=== PATIENT | female | born 1945 | race Caucasian/White ===

== ENCOUNTER 2018-10-13 09:15 | Inpatient (IN) | payer MEDICARE ==
[2018-10-21] MEDS ORDERED: VANCOMYCIN HCL 1,000 MG in DEXTROSE 5 % IN WATER 250 ML IVPB ONE ×2 (06:00)
[2018-10-21] MEDS ORDERED: METOCLOPRAMIDE 10 MG TABLET PO ONE (06:00)
[2018-10-21] MEDS ORDERED: CEFAZOLIN 2 Gram 2 GM/50 ML BAG IVPB ONE (06:00)
[2018-10-21] MEDS ORDERED: CELECOXIB 100 MG CAPSULE PO ONE (06:00)
[2018-10-21] MEDS ORDERED: FAMOTIDINE 20MG TABLET PO ONE (06:00)
[2018-10-21] MEDS ORDERED: MECLIZINE 25 MG TABLET PO ONE (06:00)
[2018-10-21 07:23] LABS: ABO GROUP O; ANTIBODY SCREEN NEGATIVE (NEGATIVE); RH TYPE POSITIVE
[2018-10-21] MEDS ORDERED: KETOROLAC 30 MG/ML VIAL IVP PRN ×2 (09:55)
[2018-10-21] MEDS ORDERED: BISACODYL 10 MG SUPP RC PRN (09:55)
[2018-10-21] MEDS ORDERED: HYDROMORPHONE HCL 2 MG/ML VIAL IM PRN (09:55)
[2018-10-21] MEDS ORDERED: ONDANSETRON HCL IV 4 MG/2 ML VIAL IVP PRN (09:55)
[2018-10-21] MEDS ORDERED: NALOXONE 0.4 MG/1 ML VIAL IVP PRN (09:55)
[2018-10-21] MEDS ORDERED: ACETAMINOPHEN W/ CODEINE 300MG/60MG TABLET PO PRN ×2 (09:55)
[2018-10-21] MEDS ORDERED: ZOLPIDEM TARTRATE 5 MG TABLET PO PRN (09:55)
[2018-10-21] MEDS ORDERED: MAGNESIUM HYDROXIDE 30 ML UDC PO PRN (09:55)
[2018-10-21] MEDS ORDERED: DIPHENHYDRAMINE HCL 25 MG CAPSULE PO PRN (09:55)
[2018-10-21] MEDS ORDERED: ACETAMINOPHEN 325 MG TAB PO PRN (09:55)
[2018-10-21] MEDS ORDERED: AL HYDROX/MAG HYDROX 30ML UD PO PRN (09:55)
[2018-10-21] MEDS ORDERED: HYDROCODONE/APAP 10/325 TABLET PO PRN (09:55)
[2018-10-21] MEDS: HYDROCODONE/APAP 10/325 TABLET PO PRN ×3 (11:25→22:03)
[2018-10-21] MEDS ORDERED: PNEUM 23-VAL ADULT IM ONE (11:46)
--- NOTE | 2018-10-21 13:46 | Rehab Evaluation ---
Patient Information - Patient Information Diagnosis: L hip OA Ordered Treatment: PT Evaluate and Treat Status: Initial Evaluation Surgery: Yes (L hipTHR) Date of Surgery: 10/21/18 Past Medical/Surgical Hx: PAST MEDICAL/SURGICAL HISTORY Past Surgical History RTHA 1 yr ago bilat shoulder replacemnents exploratory sx tonsils PMH - Respiratory Hx Respiratory Disorders Yes Hx Bronchitis Yes Hx Pneumonia Yes PMH - Cardiovascular Hx Cardiovascular Disorders Yes Hx Hypertension Yes Exercise Tolerance Good PMH - Neuro Hx Neurological Disorders No PMH - GI Hx Gastrointestinal Disorders Yes Hx Gastroesophageal Reflux Yes: spicy food PMH - Hx Genitourinary Disorders No PMH - Endocrine Hx Endocrine Disorders No Hx Diabetes No: Pt denies blood sugar on labs was 206 PMH - Musculoskeletal Hx Musculoskeletal Disorders Yes Hx Arthritis Yes Hx Fibromyalgia Yes: possibly PMH - Psych Hx Psychiatric Problems No PMH - Hematology/Oncology Hx Hematology/Oncology Yes Disorders Hx Cancer Yes: skin CA face Premorbid Status: Detail (The patient was independent with all mobility prior to surgery.) Social History: Detail (The patient lives with spouse in a mobile home with 4 steps at the enterance with 2 railings. The patient's bathroom is equipped with a tub/shower combination and a standard toilet with a riser seat. The patient has a front wheeled walker, 4 wheeled walker, standard cane, reachers and sock aides. The patient is planning on going to subacute Rehab following her inpatient stay.) Precautions: [place], Fall, Other (THR precautions.) - Time With Patient Total Time Spent With Patient (Min): 30 Treatment Procedures: Detail (Initial Evaluation) Subjective Information - Subjective Information Per Patient (The patient had minimal complaints of level 2 L hip pain using 0- 10 pain scale. The patient complained of light headedness with both sitting and standing.) Objective Data - Mental Status Patient Orientation: Oriented x3 - Visual Perception Appears within normal limits for therapeutic activities - ROM Not within normal limits (The patient's L hip pain is limited within THR precautions. All other LE AROM is WNL.) - Strength/Tone Not within normal limits (The patient's L LE strength was not tested secondary to s/p surgery however is WFL. The patient's R LE is WNL.) - Bed Mobility Independent (The patient required minimal PA to slide/lift L LE for supine to sit and was independent with sit to supine and scooting up in bed.) - Transfers Independent (The patient was independent with sit to stand. The patient required CG/supervision with commode transfer due to light headedness.) - Balance Balance Sitting: Good Balance Standing: Good - Sensation Intact - Gait Detail (The patient ambulated 2 to 3 steps with front wheeled walker due to lightheadness. The patient ambulated per nursing staff later with supervision for safety (14 feet x 1)) Therapy Assessment - Therapy Assessment Detail (The patient's mobility was limited secondary to lightheadness. Feel the patient will progress well with mobility once symptoms subside.) Patient Education - Patient Education Teaching Topic: Precautions (The patient was able to indentify 3 THR precautions.) Response: Verbalize Understanding Teaching Method: Discussion Teaching Recipient: Patient Barriers To Learning: None Problem List - Problem List Physical Therapy Problem List: Detail (1) Decreased L LE strength 2) Assistance with bed mobility 3) Limited ambulation) Goals - Goals Physical Therapy Goals: 1) The patient will be independent with all bed mobility. 2) The patient will be independent with THR HEP. 3) The patient will ambulate with appropriate assistive device household distances WBAT on the L LE. 4) The patient will ambulate on stairs with supervision for safety using proper technique. Prognosis - Prognosis Good Plan - Plan Physical Therapy Plan: PT 1-2 times a day for gait training , bed mobility , transfer training and instruction in HEP until all inpatient PT goals have been met.
[2018-10-21] MEDS ORDERED: BUPIVACAINE 0.5% W/EPI MPF 30 ML VIAL IVP ONE (16:02)
[2018-10-21] MEDS ORDERED: TRANEXAMIC ACID 1,000 MG/10 ML ML IV ONE (16:02)
--- NOTE | 2018-10-21 16:20 | Operative Note ---
DATE OF SURGERY: 10/21/2018 PREOPERATIVE DIAGNOSIS: End-stage arthrosis of the left hip. POSTOPERATIVE DIAGNOSIS: End-stage arthrosis of the left hip. OPERATION: Cementless left total hip arthroplasty using [employer]ria and Nephew components with a size 50 no-hole Reflection cup, 32 mm diameter 35-degree offset liner, a size 12 high-offset [place] stem with a +0 32 mm diameter Oxinium head. Surgeon: Olman Singleton MD Anesthesia: Spinal. PREPARATION: Chloraprep. INDIVIDUAL CONSIDERATIONS: None. PROCEDURE: The patient was taken to the operating room, placed supine on the operating room table. She had a successful induction of spinal anesthetic. She was then placed on her side left side up. Her left leg and hip were prepped and draped in the usual fashion. The patient had a direct posterior approach to the hip. Sharp dissection carried down through skin and subcutaneous tissues. Small veins were coagulated with a Bovie. The tensor gluteal fascia was opened along the entire length of the incision, and deep retractors were placed. Short external rotators were identified, piriformis fossa removed exposing the posterior capsule. Posterior capsulectomy was performed. Hip was dislocated posteriorly. The patient had bloody fluids on the hip, an erosive head. A femoral neck cut was then made about a fingerbreadth above the lesser trochanter and a rim capsulectomy was performed. Starting with a 45 mm reamer to medialize to the medial wall, I reamed to the introitus, which was 49 for a 50 cup. I slightly under-reamed to 48. After irrigation, I impacted a size 50 no-hole Reflection cup in 20 degrees of forward flexion and about 40 degrees of abduction using the extraarticular alignment guide and bony landmarks. There was solid cementless fixation. This was then irrigated out. A center cap screw was placed, and a 32 mm diameter 35-degree offset liner was placed with the offset posteriorly and inferiorly. This gave an excellent stable acetabular construct, and this was packed off. The proximal femur was delivered into the wound, and box cutting osteotome was used to remove the proximal metaphyseal bone. Mid stem reaming was done to a size 13. I started feeling cortex between 11 and 12. I started broaching with an 11 to a 10 and then up to a 13. Anteversion was dialed in to follow the natural anteversion angle, which is about 20-25 degrees. After calcar reaming with a high-offset +0 trial, I had excellent stability. I removed the trial, irrigated it out, and packed in a high offset size 13 [place] stem with solid calcar contact, solid cementless fixation. Again with a +0 trial, full stability. Irrigated out, dried the [place] taper, impacted a +0 32 mm diameter Oxinium head. I reduced the hip. Full stability, full anterior stability, and full extension and external rotation. Normal shuck. I flexed her maximally and internally rotated 90 degrees until I had stability. After irrigation, the sciatic nerve was inspected and found to be completely intact. Hemostasis was obtained with a Bovie. The patient did receive 1 g of tranexamic acid preoperatively. I mixed 1 g of tranexamic acid with 30 mL of saline and placed this deep in the fascia. The fascia was then closed with a running #2 quill, subcu was closed in layers with running 0 quill, skin was closed with juvencio. Prior to closure, I did infiltrate the skin and subcu with 30 mL of Marcaine with epinephrine and sterile bulky compressive NOREEN-type dressing was applied. The patient tolerated the procedure well. Needle and sponge counts were correct. Estimated blood loss was minimal. She was taken back to recovery in good condition. There were no complications. BRANDON
[2018-10-21] MEDS: FERROUS SULFATE 325 MG TAB PO SCH (16:26)
[2018-10-21] MEDS: DOCUSATE SODIUM 100 MG CAPSULE PO SCH ×2 (16:26→21:54)
[2018-10-21] MEDS: CEFAZOLIN 2 Gram 2 GM/50 ML BAG IVPB SCH ×2 (17:18→23:06)
[2018-10-21] MEDS: POTASSIUM CHLORIDE/D5-0.9%NACL 20 MEQ/1,000 ML BAG IV SCH ×2 (21:54→21:55)
[2018-10-22] MEDS: POTASSIUM CHLORIDE/D5-0.9%NACL 20 MEQ/1,000 ML BAG IV SCH ×2 (04:01→14:27)
[2018-10-22 06:54] LABS: HEMOGLOBIN 11.2 gm/dl (11.6-16.0)
[2018-10-22 07:07] LABS: BLOOD UREA NITROGEN 15 mg/dL (8-23); CREATININE 0.9 mg/dL (0.5-0.9); EST GLOMERULAR FILTRATION RATE > 60 mL/min; GLUCOSE,RANDOM 151 mg/dL (74-109)
--- NOTE | 2018-10-22 07:43 | RADIOLOGY REPORT ---
EXAM: CHEST, SINGLE VIEW HISTORY: HUSSAIN PLACEMENT. TECHNIQUE: A single frontal view of the chest was obtained. Comparison: None. FINDINGS: Borderline cardiac silhouette enlargement. The thoracic aorta is mildly tortuous. No focal pulmonary consolidation. No pleural effusion or pneumothorax visible. No definite acute osseous findings. A right glenohumeral prosthesis is noted. IMPRESSION: 1. BORDERLINE CARDIAC SILHOUETTE ENLARGEMENT. 2. NO DEFINITE ACUTE LUNG FINDINGS. JOB NUMBER: [id number] MTDD
[2018-10-22] MEDS: HYDROCODONE/APAP 10/325 TABLET PO PRN ×2 (09:02→19:19)
[2018-10-22] MEDS: CEFAZOLIN 2 Gram 2 GM/50 ML BAG IVPB SCH (09:11)
[2018-10-22] MEDS: FERROUS SULFATE 325 MG TAB PO SCH (09:12)
[2018-10-22] MEDS: DOCUSATE SODIUM 100 MG CAPSULE PO SCH ×2 (09:12→22:57)
[2018-10-22] MEDS: RIVAROXABAN 10 MG TABLET PO SCH (09:12)
[2018-10-22] MEDS: LISINOPRIL 30 MG PO SCH (09:15)
--- NOTE | 2018-10-22 10:37 | Rehab Evaluation ---
Patient Information - Patient Information Diagnosis: DJD left hip Ordered Treatment: OT Evaluate and Treat Status: Initial Evaluation Surgery: Yes (left MAGED) Date of Surgery: 10/21/18 Past Medical/Surgical Hx: PAST MEDICAL/SURGICAL HISTORY Past Surgical History RTHA 1 yr ago bilat shoulder replacemnents exploratory sx tonsils PMH - Respiratory Hx Respiratory Disorders Yes Hx Bronchitis Yes Hx Pneumonia Yes PMH - Cardiovascular Hx Cardiovascular Disorders Yes Hx Hypertension Yes Exercise Tolerance Good PMH - Neuro Hx Neurological Disorders No PMH - GI Hx Gastrointestinal Disorders Yes Hx Gastroesophageal Reflux Yes: spicy food PMH - Hx Genitourinary Disorders No PMH - Endocrine Hx Endocrine Disorders No Hx Diabetes No: Pt denies blood sugar on labs was 206 PMH - Musculoskeletal Hx Musculoskeletal Disorders Yes Hx Arthritis Yes Hx Fibromyalgia Yes: possibly PMH - Psych Hx Psychiatric Problems No PMH - Hematology/Oncology Hx Hematology/Oncology Yes Disorders Hx Cancer Yes: skin CA face Premorbid Status: Detail (The patient was independent with all mobility prior to surgery. She and family members shared home mgmt, meal prep and laundry.) Social History: Detail (The patient lives with spouse and son in a double wide mobile home with 3 steps at the entrance with 2 railings. The patient's bathroom is equipped with a tub/shower combination with a tub seat and a standard toilet with a riser seat. There are no grab bars in the bathroom. The patient has a front wheeled walker, 4 wheeled walker, standard cane and 3 reachers. The patient is planning on going to subacute Rehab following her inpatient stay.) Precautions: [place], Fall, Other (THR precautions.) - Time With Patient Total Time Spent With Patient (Min): 40 Treatment Procedures: Detail (OT eval low complexity) Subjective Information - Subjective Information Per Patient Objective Data - Pain Pain Present: Yes (04/03) - Mental Status Patient Orientation: Oriented x3 - Visual Perception Appears within normal limits for therapeutic activities (Pt wears glasses.) - ROM Within normal limits (Alaln UE AROM WNL) - Strength/Tone Within normal limits (Allan UE strength WNL) - Coordination Appears within normal limits for therapeutic activities - Bed Mobility Needs Assist (Pt required min assist for moving left LE to EOB and hand held assist to lift upper body up to sitting.) - Transfers Independent (Ind with sit to stand from EOB, chair and commode heights.) - Balance Balance Sitting: Good Balance Standing: Fair - Sensation Intact - Gait Detail (Pt ambulating in room/bathroom with 2 wheeled walker and SBA.) - ADL's/IADL's Detail (Pt educated re: use of mobile equipment servicer, sock aid and long shoe horn for modified LE dressing while adhering to total hip precautions. She was Ind with doffing slipper socks after verbal instruction and Ind with donning sweat pants using mobile equipment servicer. She was able to don socks and tennis shoes using sock aid and long shoe horn after instruction. Pt required SBA for toileting as she was very fatigued and slightly dizzy. Reviewed kitchen and shower safety and modifications, pt verbalized understanding.) Therapy Assessment - Therapy Assessment Detail (Pt Ind with modified LE dressing techniques using adaptive equipment.) Problem List - Problem List Physical Therapy Problem List: Detail (1) Decreased L LE strength 2) Assistance with bed mobility 3) Limited ambulation) Occupational Therapy Problem List: Detail (No current IP OT problems identified although pt was very easily fatigued.) Goals - Goals Physical Therapy Goals: 1) The patient will be independent with all bed mobility. 2) The patient will be independent with THR HEP. 3) The patient will ambulate with appropriate assistive device household distances WBAT on the L LE. 4) The patient will ambulate on stairs with supervision for safety using proper technique. Occupational Therapy Goals: No current IP OT goals identified. She may benefit from short Rehab stay to improve overall endurance as well as safety with IADLs. Prognosis - Prognosis Good Plan - Plan Physical Therapy Plan: PT 1-2 times a day for gait training , bed mobility , transfer training and instruction in HEP until all inpatient PT goals have been met. Occupational Therapy Plan: No further IP OT recommended. Thank you for this referral.
[2018-10-22] MEDS ORDERED: PROPOFOL 10 MG/ML VIAL IV ONE (11:33)
[2018-10-22] MEDS ORDERED: LIDOCAINE 2% MDV (20MG/ML) 20ML VIAL IV ONE (11:33)
[2018-10-22] MEDS ORDERED: EPHEDRINE SULFATE 50 MG/ML ML IV ONE (11:33)
[2018-10-22] MEDS ORDERED: PHENYLEPHRINE HCL 10 MG/ML VIAL IVP ONE (11:33)
[2018-10-22] MEDS ORDERED: MIDAZOLAM HCL 2MG/2ML VIAL IV ONE (11:33)
[2018-10-22] MEDS ORDERED: LABETALOL HCL 5MG/ML, 20ML VIAL IV ONE (12:10)
--- NOTE | 2018-10-22 12:20 | Consult ---
Consult Order Detail - Reason for Consult Consult Date: 10/22/18 Consult Order Detail: Pt was noted to have elevated BP s/p hip surgery. At the time of BP, pt was having elevated pain. Pt was medicated for pain, repeat BP had improvement but not WNL. Dr Singleton made aware and asked for consult to evaluate BP. Limited access to PMH other than pt and but they are both poor historians. No EKG noted in paper or EMR. Pt reports improved pain /10, denies HAINES, CP, or blurred vision. Medication hx is lisinopril 30mg and HCTZ 25mg but only lisinopril has been ordered during this admission. Pt denies h/o DC or heart block, labetolol 10mg IVP ordered once with repeat BP 10 min after administration. Pt does report that pt BP runs 140/150s normally especially during DrElayne benjamin. Pt in no acute distress, was ambulating to restroom during first interaction. Moving all extremities, left leg req some assistance s/p recent hip revision. Will re-assess after pt back to her bed and again if medication is not successful to control BP. Pt has returned to EOB, lungs clear throughout, no noted LE edema. Pt noted to be adding extra salt to her lunch at the time of assessment. Pt encouraged to limit her salt intake and use Mrs Dash instead of salt. Nursing staff to adjust diet to exclude salt additives. - Chief Complaint Chief Complaint: PRIMARY OSTEOARTHRITIS LEFT HIP HPI Consult - History of Present Illness Admitting Diagnosis: djd left hip Past Medical History - SOCIAL HISTORY Smoking Status: Never smoker Alcohol Use: None Drug Use: None - RESPIRATORY Hx Respiratory Disorders: Yes Hx Bronchitis: Yes Hx Pneumonia: Yes - CARDIOVASCULAR Hx Cardio Disorders: Yes Hx Hypertension: Yes - NEURO Hx Neuro Disorders: No - GI Hx GI Disorders: Yes Hx Reflux: Yes (spicy food) - Hx Genitourinary Disorders: No - ENDOCRINE Hx Endocrine Disorders: No Hx Diabetes: No (Pt denies blood sugar on labs was 206) - MUSCULOSKELETAL Hx Musculoskeletal Disorders: Yes Hx Arthritis: Yes Hx Fibromyalgia: Yes (possibly) - PSYCH Hx Psych Problems: No - HEMATOLOGY/ONCOLOGY Hx Hematology/Oncology Disorders: Yes Hx Cancer: Yes (skin CA face) Family Medical History Any Significant Family History?: Yes Hx Cancer: Father Hx Heart Disease: Mother Hx HTN: Brother/Sister H&P Meds - Home Medications and Allergies Allergies Allergy/AdvReac Type Severity Reaction Status Date / Time No Known Drug Allergies Allergy Verified 10/10/18 10:35 Physical Exam - Vital Signs Vital Signs: Vital Signs - Last 24 Hrs Temp Pulse Resp BP BP Pulse Ox 10/22/18 11:55 74 180/68 10/22/18 11:25 16 213/71 10/22/18 08:00 98.4 F 76 18 171/50 93 L 10/22/18 04:00 97.9 F 71 16 152/70 95 10/22/18 00:00 97.9 F 68 16 170/64 98 10/21/18 21:00 16 10/21/18 20:00 97.7 F 78 16 150/66 97 10/21/18 13:10 73 18 156/48 97 Results - Labs Result Diagrams: 10/22/18 06:43 10/22/18 06:43 Labs Last 24 Hours: Laboratory Results - last 24 hr 10/22/18 10/22/18 06:43 06:43 Hgb 11.2 L Hct 35.0 Sodium 140 Potassium 4.5 Chloride 103 Carbon Dioxide 24.0 Anion Gap 13.0 BUN 15 Creatinine 0.9 Estimated GFR > 60 Random Glucose 151 H Calcium 9.2
--- NOTE | 2018-10-22 14:36 | Physical Therapy Tx Note ---
Physical Therapy Tx Note - Treatment Note Tolerated: Fair Total Time Spent With Patient: 25 Physical Therapy Tx Note: Detail (The patient was up in chair when PT arrived. The patient had complaints of L hip pain and lightheadness after ambulating. The patient was independent with sit to and from stand and ambulated 40 feet x 1 WBAT on L LE with front wheeled walker with supervision. The patient exhibited shortness of breath. The patient declined further activity secondary to not feeling well.The patient was returned to room via wheelchair and transfered from wheelchair to bed with use of walker with supervision for safety. The patient was able to achieve sit to supine with minimal PA to lift L LE. The patient was independent with scooting up in bed. Will see patient this pm for review of HEP.) Physical Therapy Problem List: Detail (1) Decreased L LE strength 2) Assistance with bed mobility 3) Limited ambulation) Physical Therapy Goals: 1) The patient will be independent with all bed mobility. 2) The patient will be independent with THR HEP. 3) The patient will ambulate with appropriate assistive device household distances WBAT on the L LE. 4) The patient will ambulate on stairs with supervision for safety using proper technique. Physical Therapy Plan: PT 1-2 times a day for gait training , bed mobility , transfer training and instruction in HEP until all inpatient PT goals have been met.
[2018-10-22] MEDS ORDERED: HYDROCHLOROTHIAZIDE 25 MG TABLET PO ONE (14:59)
--- NOTE | 2018-10-22 16:39 | Physical Therapy Tx Note ---
Physical Therapy Tx Note - Treatment Note Tolerated: Fair Total Time Spent With Patient: 15 Physical Therapy Tx Note: Detail (The patient was in bed when PT arrived. The patient reports she still had a little lightheadedness. The patient's THR exercises were reviewed including: gluteal sets, quad sets, hamstring sets, ankle pumps, assisted hip abduction and hip flexion. The patient had increased pain complaints with hip abduction and flexion.) Physical Therapy Problem List: Detail (1) Decreased L LE strength 2) Assistance with bed mobility 3) Limited ambulation) Physical Therapy Goals: 1) The patient will be independent with all bed mobility (Goal partially met). 2) The patient will be independent with THR HEP (Goal Met). 3) The patient will ambulate with appropriate assistive device household distances WBAT on the L LE. (Goal Met). 4) The patient will ambulate on stairs with supervision for safety using proper technique. (Goal Not Met and to continue in subacute rehab) Physical Therapy Plan: PT 1-2 times a day until discharge to subacute Rehab for gait training, bed mobility, transfer training and THR exercises.
[2018-10-23] MEDS: TRAMADOL HCL 50 MG TABLET PO PRN (05:51)
[2018-10-23 06:44] LABS: HEMATOCRIT 31.1 % (35.0-47.0); HEMOGLOBIN 9.9 gm/dl (11.6-16.0)
[2018-10-23 06:57] LABS: BLOOD UREA NITROGEN 21 mg/dL (8-23); CREATININE 0.8 mg/dL (0.5-0.9); EST GLOMERULAR FILTRATION RATE > 60 mL/min; GLUCOSE,RANDOM 160 mg/dL (74-109)
[2018-10-23] MEDS: DOCUSATE SODIUM 100 MG CAPSULE PO SCH ×2 (09:56→21:54)
[2018-10-23] MEDS: HYDROCHLOROTHIAZIDE 25 MG TABLET PO SCH (09:56)
[2018-10-23] MEDS: FERROUS SULFATE 325 MG TAB PO SCH (09:57)
[2018-10-23] MEDS: RIVAROXABAN 10 MG TABLET PO SCH (09:58)
[2018-10-23] MEDS: LISINOPRIL 30 MG PO SCH (09:58)
--- NOTE | 2018-10-23 13:03 | Physical Therapy Tx Note ---
Physical Therapy Tx Note - Treatment Note Tolerated: Good Total Time Spent With Patient: 25 Physical Therapy Tx Note: Detail (Patient was seated in chair upon DISSOLVER OPERATOR arrival. Patient states 5/10 pain in left hip. Patient transferred sit to and from stand CGA x1. Patient ambulated 102 feet with wheeled walker SBA x1. Patient required several standing rest breaks due to fatigue. Patient performed the following exercises x10 reps each: seated marching, LAQ, isometric hip adduction , seated heel raises, seated toe raises, and glut squeezes. Patient transferred sit to and from stand SBA x1. Patient ambulated 13 feet x2 with wheeled walker SBA x1. Patient transferred sit to and from stand independently. Patient transferred sit to supine min assist x1 to support left LE. Patient scooted up in bed min assist to prevent right foot from sliding. Patient tolerated treatment well. Patient reports feeling tired after treatment. Patient was left reclined in bed with call light within reach.) Physical Therapy Problem List: Detail (1) Decreased L LE strength 2) Assistance with bed mobility 3) Limited ambulation) Physical Therapy Goals: 1) The patient will be independent with all bed mobility (Goal partially met). 2) The patient will be independent with THR HEP (Goal Met). 3) The patient will ambulate with appropriate assistive device household distances WBAT on the L LE. (Goal Met). 4) The patient will ambulate on stairs with supervision for safety using proper technique. (Goal Not Met and to continue in subacute rehab) Prognosis: Good Physical Therapy Plan: PT 1-2 times a day until discharge to subacute Rehab for gait training, bed mobility, transfer training and THR exercises.
--- NOTE | 2018-10-23 14:15 | Physical Therapy Tx Note ---
Physical Therapy Tx Note - Treatment Note Tolerated: Good Total Time Spent With Patient: 10 Physical Therapy Tx Note: Detail (Patient states feeling tired this afternoon. Patient transferred sit to and from stand SBA x1. Patient ambulated 112 feet with wheeled walker SBA x1. Patient declined further exercises due to fatigued. Patient was left seated in chair with call light within reach.) Physical Therapy Problem List: Detail (1) Decreased L LE strength 2) Assistance with bed mobility 3) Limited ambulation) Physical Therapy Goals: 1) The patient will be independent with all bed mobility (Goal partially met). 2) The patient will be independent with THR HEP (Goal Met). 3) The patient will ambulate with appropriate assistive device household distances WBAT on the L LE. (Goal Met). 4) The patient will ambulate on stairs with supervision for safety using proper technique. (Goal Not Met and to continue in subacute rehab) Prognosis: Good Physical Therapy Plan: PT 1-2 times a day until discharge to subacute Rehab for gait training, bed mobility, transfer training and THR exercises.
[2018-10-23] MEDS: HYDROCODONE/APAP 10/325 TABLET PO PRN ×2 (14:41→20:55)
--- NOTE | 2018-10-23 20:30 | Discharge Summary ---
DATE OF ADMISSION: 10/21/2018 DATE OF DISCHARGE: 10/24/2018 DATE OF SURGERY: 10/21/2018 HISTORY: Gema is a delightful 73-year-old female who presents with end-stage arthrosis of her right hip. She was admitted after right total hip arthroplasty. Postoperatively, she did well and her hospital course was unremarkable. Her discharge hemoglobin was 9.9. DISCHARGE INSTRUCTIONS: The plan is to transfer her to rehab. She was given [place] for pain. She will get an additional four days of Xarelto for DVT prophylaxis and then after that she should take a regular Aspirin daily for an additional 30 days. Her sutures should be removed two weeks postoperatively and she should follow-up in my office in four weeks. Her discharge condition was good. FINAL DIAGNOSIS/PRIMARY DIAGNOSIS: END-STAGE ARTHROSIS OF THE RIGHT HIP. SECONDARY DIAGNOSIS: ACUTE OPERATIVE BLOOD LOSS ANEMIA. OPERATIONS AND PROCEDURES: CEMENTLESS RIGHT TOTAL HIP ARTHROPLASTY. JOB NUMBER: [id number] MTDD
[2018-10-24] MEDS: HYDROCODONE/APAP 10/325 TABLET PO PRN ×2 (01:11→11:17)
[2018-10-24] MEDS: TRAMADOL HCL 50 MG TABLET PO PRN (04:26)
[2018-10-24] MEDS: HYDROCHLOROTHIAZIDE 25 MG TABLET PO SCH (11:15)
[2018-10-24] MEDS: RIVAROXABAN 10 MG TABLET PO SCH (11:15)
[2018-10-24] MEDS: DOCUSATE SODIUM 100 MG CAPSULE PO SCH (11:16)
[2018-10-24] MEDS: FERROUS SULFATE 325 MG TAB PO SCH (11:16)
[2018-10-24] MEDS: LISINOPRIL 30 MG PO SCH (11:20)
--- NOTE | 2018-10-24 13:07 | Physical Therapy Tx Note ---
Physical Therapy Tx Note - Treatment Note Tolerated: Good Total Time Spent With Patient: 15 Physical Therapy Tx Note: Detail (The patient was seen for car transfer. The patient transferred into the car with supervision and verbal cues for proper technique. The patient's was instructed in proper positioning of car seat to maintain THR precautions.) Physical Therapy Problem List: Detail (1) Decreased L LE strength 2) Assistance with bed mobility 3) Limited ambulation) Physical Therapy Goals: 1) The patient will be independent with all bed mobility (Goal met). 2) The patient will be independent with THR HEP (Goal Met ). 3) The patient will ambulate with appropriate assistive device household distances WBAT on the L LE. (Goal Met). 4) The patient will ambulate on stairs with supervision for safety using proper technique. (Goal Not Met and to continue in subacute rehab) Physical Therapy Plan: The patient is discharged from [facility] to rehab facility.
== END 2018-10-24 12:50 | DRG 470 ==
LOC: UNDOADMIN 10-21 05:44 → MEDSURG 10-21 05:44
PROVIDERS: ADMIT Orthopaedic Surgery; ATTEND Orthopaedic Surgery
PROC: 0SRB06A Replacement of Left Hip Joint with Oxidized Zirconium on Polyethylene Synthetic Substitute, Uncemented, Open Approach (ICD-10-PCS; principal; 2018-10-24)
DX: M16.12 Unilateral primary osteoarthritis, left hip (principal); I10 Essential (primary) hypertension
CPT/HCPCS: 71045; 80048; 85014; 85018; 86850; 86900; 86901; 90686; 90732; 97110; 97530; C1776; J2370; J3480